=== PATIENT | female | born 1975 | race Caucasian/White ===

== ENCOUNTER 2021-03-13 14:59 | Outpatient (RCR) | payer OTHER, SELFPAY ==
[2021-03-13 15:10] VITALS: BP_SYST 110
--- NOTE | 2021-03-13 16:10 | PTOPEVAL ---
PHYSICAL THERAPY EVALUATION AND PLAN OF CARE 03-13-21 Thank you for referring Puja Mayfield to [facility] for the diagnosis of L shoulder pain. Puja is scheduled to be seen for therapy? 2 x/week for 3 weeks. Please review, sign, date and return this plan of care CONNIE. I agree with and certify that the following plan of care is medically necessary. Referring Physician Date Attending Provider: Adelso Dudley DO PT Outpatient Evaluation Document 03/13/21 15:10 EMA (Rec: 03/13/21 16:10 EMA [id number]) Past Medical History Source of Past Medical History Patient Neurological History Hx Neurological Disorders No Significant History Cardiovascular History Hx Cardiac Disorders No Significant History Respiratory History Hx Respiratory Disorders No Significant History Gastrointestinal History Hx Gastrointestinal Disorders No Significant History Genitourinary History Hx Genitourinary Disorders No Significant History Musculoskeletal History Hx Orthopedic Surgery Yes: L humeral fx-ORIF 2015; hardware removed 2016; Hx Other Musculoskeletal Disorders Yes: L all MT fracture; L pelvic fracture, L hip pain;T- L fractures,rib fx Endocrine History Hx Endocrine Disorders No Significant History HEENT History Hx HEENT Disorders No Significant History Evaluation Information Problem Diagnosis L shoulder pain Onset Jun 2020 Subjective Information chronic L shoulder pain, since Query Text:As Reported By Patient/ shoulder surgery in 2017; Family released from surgeon's care and returned to work; gradual increase in pain; at this time, is not doing any shoulder exercises, but a few stretches occasionally; does not have any room to do any exercises- living in a small space. 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
--- NOTE | 2021-03-19 15:21 | PCPTNOTE ---
Patient called & cancelled scheduled appointment this date due to seeing MD today due to increase pain on left side of body will see if she should continue with therapy.
--- NOTE | 2021-03-21 16:08 | PCPTNOTE ---
Patient did not show to appointment this date. Called and spoke with patient about appointment. Patient reports she is in so much pain in the left side of her body that she is going to see the MD next week. Patient states she wants to wait to come to therapy until she sees what the doctor instructed her to do.
--- NOTE | 2021-04-23 11:30 | PCPTNOTE ---
PHYSICAL THERAPY DISCHARGE 04-23-21 Attending Provider: Adelso Dudley DO Patient:Puja Mayfield Date of :1975 Ms. Mayfield has not returned for any further treatments since the initial evaluation on 03/13/2021, therefore she will be discharged at this time. The goals were not assessed. Thank you for referring Puja to [facility]. Please review, sign, date and return this discharge summary CONNIE. I have been updated about the patient's current status and I agree with discharge from the above service at this time. Referring Physician Date
== END 2021-04-24 09:07 | disposition home or self-care (01) ==
LOC: ANHPT 14:59
PROVIDERS: PCP Family Medicine; Visit Provider Family Medicine
DX: M25.512 Pain in left shoulder (principal); M77.42 Metatarsalgia, left foot; S99.922D Unspecified injury of left foot, subsequent encounter
CPT/HCPCS: 97161

== ENCOUNTER 2021-03-25 15:59 | Outpatient (CLI) | payer OTHER, SELFPAY ==
--- NOTE | ~2021-03-25 | XR_ITS ---
XR shoulder LT min 2V DATE: 03/25/2021 16:18 INDICATION: Left shoulder pain TECHNIQUE: 4 views COMPARISON: None FINDINGS: Old drill holes are noted in the proximal left humerus. No recent fracture or dislocation, periosteal reaction or bone destruction. No abnormal soft tissue c alcification. IMPRESSION: No acute finding Drill holes of proximal left humerus probably related to removal of prior orthopedic hardware Reviewed, dictated and finalized at location A. IMPRESSION: No acute finding Drill holes of proximal left humerus probably related to removal of prior ortho pedic hardware
--- NOTE | ~2021-03-25 | XR_ITS ---
XR lumbar spine 2-3V DATE: 03/25/2021 16:18 INDICATION: Chronic low back pain TECHNIQUE: AP, lateral, coned lateral lumbosacral views COMPARISON: None FINDINGS: No fracture or bone destruction or spondylolisthesis. The included lower thoracic and lumba r pedicles are intact. Lumbar and upper sacral interspaces are well preserved. Normal alignment at the sacroiliac joints. IMPRESSION: Negative Reviewed, dictated and finalized at location A. IMPRESSION: Negative
== END 2021-03-25 16:00 | disposition home or self-care (01) ==
LOC: ANHBWCIMG 16:00
PROVIDERS: PCP Family Medicine; Visit Provider Family Medicine
DX: M54.5 Low back pain (principal); M25.512 Pain in left shoulder
CPT/HCPCS: 72100; 73030

== ENCOUNTER 2021-04-28 16:06 | Outpatient (CLI) | payer OTHER, SELFPAY ==
--- NOTE | ~2021-04-28 | MR_ITS ---
EXAMINATION: MR shoulder LT wo/w con DATE: 04/28/2021 18:03 INDICATION: Left shoulder pain TECHNIQUE: Magnetic resonance imaging (MRI) of the left shoulder was performed without intravenous co ntrast. Sequences included axial PD-weighted FS FSE,, coronal oblique PD-weighted FS FSE, coronal obl ique T2-weighted FS FSE, sagittal PD-weighted FS FSE, and sagittal T1-weighted SE. Postcontrast axial , sagittal and coronal T1-weighted FS FSE were also obtained. COMPARISON: Left shoulder radiographs dated 03/25/2021 FINDINGS: Coracoacromial arch: The acromion undersurface is curved in morphology (type II). The coracoacromial ligament is normal. A cromioclavicular joint is normal. Rotator cuff: Mild supraspinatus and subscapularis tendinopathy without discrete tear. The infraspinatus and teres minor tendons are normal. Normal rotator cuff muscle bulk and signal. Biceps tendon, glenoid labrum and glenohumeral cartilage: Long head of the biceps tendon is normal. Small tear at the 10:00-11:00 position of the posterior sup erior glenoid labrum. Glenoid cartilage is normal. Small region of shallow chondral ulceration along the superomedial aspect of the humeral head. Fluid: Physiologic amount of fluid in the glenohumeral joint and biceps tendon sheath. No loose osteochondra l bodies. No abnormal increased fluid signal in the subacromial/subdeltoid bursa to suggest bursitis. Bones: There are multiple old screw tracks along the lateral aspect of the proximal right humerus with an ob lique scar of an old healed fracture to surgical neck. Marrow signal is otherwise normal. No acute fr acture or pathologic marrow replacing process. IMPRESSION: 1. Mild supraspinatus and subscapularis tendinopathy without discrete tear. 2. Minimal glenohumeral osteoarthritis with small tear of the posterior superior glenoid labrum. Reviewed, dictated and finalized at location A. IMPRESSION: 1. Mild supraspinatus and subscapularis tendinopathy without discrete tear. 2. Minimal glenohumeral osteoarthritis with small tear of the posterior superio r glenoid labrum.
--- NOTE | ~2021-04-28 | MR_ITS ---
EXAMINATION: MR foot LT wo con DATE: 04/28/2021 18:02 INDICATION: Left foot pain TECHNIQUE: Magnetic resonance imaging (MRI) of the left fore/mid foot was performed without intraveno us contrast. Sequences included sagittal T1-weighted FSE, sagittal fluid sensitive FSE STIR, coronal PD-weighted FS FSE, coronal T1-weighted FSE, axial PD-weighted FS FSE, and axial PD-weighted FSE. COMPARISON: Left foot radiographs dated 01/15/2021 FINDINGS: 15 degrees valgus angulation at the first metatarsophalangeal joint and mild lateral subluxation of t he first metatarsal sesamoids. Bone alignment is otherwise normal. No fractures. Mild to moderate ost eoarthritis at the first metatarsophalangeal joint with nonuniform joint space narrowing, mild subart icular edema at the head of the first metatarsal and small marginal osteophytes at the lateral margin of the base of the first proximal phalanx and head of the first metatarsal. Otherwise normal marrow signal with no other reactive edema or pathologic marrow replacing process. Remainder of the joint sp aces are normal. No erosions to suggest an inflammatory arthritis. Likely reactive small joint effusi on at the first metatarsophalangeal joint. No other joint effusions, tenosynovitis, bursitis or other abnormal fluid collections. Lisfranc ligament complex is normal as are the collateral ligament compl ex at the metatarsophalangeal joints and interphalangeal joints. Visualized portions of the flexor an d extensor tendons are normal as is the intrinsic musculature of the foot. IMPRESSION: 1. Mild hallux valgus with mild to moderate osteoarthritis at the first metatarsophalangeal joint. Reviewed, dictated and finalized at location A. IMPRESSION: 1. Mild hallux valgus with mild to moderate osteoarthritis at the first metatar sophalangeal joint.
[2021-04-28 16:58] LABS: Estimated Glomerular Filt Rate > 60
== END 2021-04-28 16:07 | disposition home or self-care (01) ==
LOC: ANHIMG 16:14
PROVIDERS: PCP Family Medicine; Visit Provider Family Medicine
DX: M19.012 Primary osteoarthritis, left shoulder (principal); M20.12 Hallux valgus (acquired), left foot; M19.072 Primary osteoarthritis, left ankle and foot
CPT/HCPCS: 73223; 73718; A9577

== ENCOUNTER 2021-05-30 16:29 | Outpatient (CLI) | payer OTHER, SELFPAY ==
[2021-05-30 17:44] LABS: Basophils Percent Auto 0.3 % (0.2-1.2); Eosinophils Absolute Auto 0.1 K/mm3 (0-0.3); Eosinophils Percent Auto 1.5 % (0-4.4); Hematocrit 28.7 % (37.0-47.0); Hemoglobin 9.7 g/dL (12.0-15.0); Immature Granulocyte Absolute 0.02 K/mm3 (0.00-0.031); Immature Granulocyte Percent A 0.3 % (0-0.5); Lymphocytes Absolute Auto 1.31 K/mm3 (0.9-3.2); Lymphocytes Percent Auto 22.3 % (18.3-44.2); Mean Corpuscular HGB Conc 33.8 g/dl (32-36); Mean Corpuscular Hemoglobin 30.9 pg (26-34); Mean Corpuscular Volume 91.4 fl (80-100); Mean Platelet Volume 9.2 fl (7.4-10.4); Monocytes Absolute Auto 0.5 K/mm3 (0.1-0.6); Monocytes Percent Auto 7.7 % (2.6-8.5); Neutrophils Percent Auto 67.9 % (45.5-73.1); Platelet Count Result 197 k/mm3 (150-375); Red Blood Count 3.14 M/mm3 (4.2-5.4); Red Cell Distribution Width 13.4 % (11.5-14.5); White Blood Count 5.9 K/mm3 (4.5-10.0)
[2021-05-30 17:55] LABS: Alanine Aminotransferase 85 U/L (4-35); Albumin Level 3.9 g/dL (3.5-5.1); Alkaline Phosphatase 53 U/L (38-126); Anion Gap 8 mmol/L (8-16); Aspartate Amino Transferase 52 U/L (14-36); Bilirubin,Total 0.5 mg/dL (0.2-1.3); Blood Urea Nitrogen 11 mg/dL (7-17); Calcium 8.4 mg/dL (8.4-10.2); Carbon Dioxide 24 mmol/L (22-30); Chloride 93 mmol/L (98-107); Cholesterol 139 mg/dL (0-200); Estimated Glomerular Filt Rate > 60; Glucose 93 mg/dL (65-110); HDL Direct 80 mg/dL; Potassium 4.1 mmol/L (3.4-5.0); Sodium 125 mmol/L (137-145); Triglycerides 93 mg/dL (<150)
[2021-05-30 18:09] LABS: LDL Cholesterol Direct 54 mg/dL
[2021-06-05 10:55] LABS: Amphetamines NEGATIVE
[2021-06-05 10:56] LABS: Cocaine Metabolite NEGATIVE; Marijuana Metabolite NEGATIVE; Opiates NEGATIVE
== END 2021-05-30 16:30 | disposition home or self-care (01) ==
PROVIDERS: PCP Family Medicine; Visit Provider Family Medicine
DX: G57.10 Meralgia paresthetica, unspecified lower limb (principal); M25.512 Pain in left shoulder
CPT/HCPCS: 36415; 80053; 80061; 80299; 85025

== ENCOUNTER 2021-06-02 12:15 | Outpatient (CLI) | payer OTHER, SELFPAY ==
[2021-06-02 18:37] LABS: Hematocrit 33.8 % (37.0-47.0); Hemoglobin 11.6 g/dL (12.0-15.0); Mean Corpuscular HGB Conc 34.3 g/dl (32-36); Mean Corpuscular Hemoglobin 30.7 pg (26-34); Mean Corpuscular Volume 89.4 fl (80-100); Mean Platelet Volume 9.3 fl (7.4-10.4); Platelet Count Result 321 k/mm3 (150-375); Red Blood Count 3.78 M/mm3 (4.2-5.4); Red Cell Distribution Width 13.5 % (11.5-14.5); White Blood Count 6.9 K/mm3 (4.5-10.0)
[2021-06-02 18:53] LABS: Sodium Urine Random 16 meq/L
[2021-06-02 19:36] LABS: Hepatitis B Surface Antigen Negative (Negative)
[2021-06-02 19:42] LABS: HAV RESULT Negative (Negative); Hepatitis B Core IgM Result Negative (Negative)
[2021-06-02 19:49] LABS: Iron 35 ug/dL (37-170)
[2021-06-02 19:51] LABS: Anion Gap 12 mmol/L (8-16); Blood Urea Nitrogen 9 mg/dL (7-17); Calcium 9.6 mg/dL (8.4-10.2); Carbon Dioxide 20 mmol/L (22-30); Chloride 103 mmol/L (98-107); Estimated Glomerular Filt Rate > 60; Glucose 75 mg/dL (65-110); Potassium 4.6 mmol/L (3.4-5.0); Sodium 135 mmol/L (137-145)
[2021-06-02 19:54] LABS: Hepatitis C Virus Antibody Negative (Negative)
[2021-06-02 20:01] LABS: Percent Iron Saturation 8 % (20-50)
[2021-06-02 20:56] LABS: Folic Acid 12.9 ng/mL (2.76->20)
[2021-06-05 15:25] LABS: Osmolality, Urine 81 mOsm/kg (50-1200)
== END 2021-06-02 12:16 | disposition home or self-care (01) ==
LOC: ANHBWCLAB 12:17
PROVIDERS: PCP Family Medicine; Visit Provider Family Medicine
DX: D64.9 Anemia, unspecified (principal); E87.1 Hypo-osmolality and hyponatremia; R74.8 Abnormal levels of other serum enzymes
CPT/HCPCS: 36415; 80048; 80074; 82607; 82746; 83540; 83550; 83935; 84300; 84443; 85027

== ENCOUNTER 2021-10-29 15:44 | Outpatient (CLI) | payer OTHER, SELFPAY ==
[2021-10-29 16:20] LABS: Hematocrit 33.2 % (37.0-47.0); Hemoglobin 10.6 g/dL (12.0-15.0); Mean Corpuscular HGB Conc 31.9 g/dl (32-36); Mean Corpuscular Hemoglobin 30.5 pg (26-34); Mean Corpuscular Volume 95.7 fl (80-100); Mean Platelet Volume 9.2 fl (7.4-10.4); Platelet Count Result 293 k/mm3 (150-375); Red Blood Count 3.47 M/mm3 (4.2-5.4); White Blood Count 6.5 K/mm3 (4.5-10.0)
[2021-10-29 16:35] LABS: Anion Gap 4 mmol/L (8-16); Blood Urea Nitrogen 13 mg/dL (7-17); Calcium 8.1 mg/dL (8.4-10.2); Carbon Dioxide 28 mmol/L (22-30); Chloride 103 mmol/L (98-107); Estimated Glomerular Filt Rate > 60; Glucose 82 mg/dL (65-110); Potassium 4.1 mmol/L (3.4-5.0); Sodium 135 mmol/L (137-145)
[2021-11-02 05:43] LABS: Alphahydroxymidazolam NEGATIVE ng/mL (<50); Alphahydroxytriazolam NEGATIVE ng/mL (<50); Amphetamines NEGATIVE ng/mL (<500); Barbiturates NEGATIVE ng/mL (<300); Benzodiazepines POSITIVE ng/mL (<100); Cocaine Metabolite NEGATIVE ng/mL (<100); Hydroxyethylflurazepam NEGATIVE ng/mL (<50); Lorazepam NEGATIVE ng/mL (<50); Marijuana Metabolite NEGATIVE ng/mL (<20); Methadone Metabolite NEGATIVE ng/mL (<100); Opiates NEGATIVE ng/mL (<100); Oxidant NEGATIVE mcg/mL (<200); Specific Gravity 1.005 (>=1.003); Temazepam NEGATIVE ng/mL (<50); pH 6.9 (4.5-9.0)
== END 2021-10-29 15:45 | disposition home or self-care (01) ==
LOC: ANHLAB 15:46
PROVIDERS: PCP Family Medicine; Visit Provider Family Medicine
DX: E87.1 Hypo-osmolality and hyponatremia (principal); D64.9 Anemia, unspecified; G89.29 Other chronic pain
CPT/HCPCS: 36415; 80048; 80299; 85027

== ENCOUNTER 2022-06-22 14:51 | Outpatient (CLI) | payer OTHER, SELFPAY ==
[2022-06-22 15:32] LABS: Basophils Absolute Auto 0.1 K/mm3 (0.0-0.1); Basophils Percent Auto 1.1 % (0.2-1.2); Eosinophils Absolute Auto 0.2 K/mm3 (0-0.3); Hematocrit 35.1 % (37.0-47.0); Hemoglobin 12.1 g/dL (12.0-15.0); Immature Granulocyte Absolute 0.01 K/mm3 (0.00-0.031); Immature Granulocyte Percent A 0.2 % (0-0.5); Lymphocytes Absolute Auto 2.36 K/mm3 (0.9-3.2); Lymphocytes Percent Auto 42.1 % (18.3-44.2); Mean Corpuscular HGB Conc 34.5 g/dl (32-36); Mean Corpuscular Hemoglobin 31.1 pg (26-34); Mean Corpuscular Volume 90.2 fl (80-100); Monocytes Absolute Auto 0.5 K/mm3 (0.1-0.6); Monocytes Percent Auto 8.4 % (2.6-8.5); Neutrophils Absolute Auto 2.5 K/mm3 (1.3-6.7); Neutrophils Percent Auto 45.2 % (45.5-73.1); Platelet Count Result 296 k/mm3 (150-375); Red Blood Count 3.89 M/mm3 (4.2-5.4); Red Cell Distribution Width 14.4 % (11.5-14.5); White Blood Count 5.6 K/mm3 (4.5-10.0)
[2022-06-22 15:37] LABS: Alanine Aminotransferase 27 U/L (6-35); Albumin Level 4.9 g/dL (3.5-5.1); Alkaline Phosphatase 43 U/L (38-126); Anion Gap 11 mmol/L (8-16); Aspartate Amino Transferase 32 U/L (14-36); Bilirubin,Total 0.7 mg/dL (0.2-1.3); Blood Urea Nitrogen 6 mg/dL (7-17); Calcium 8.8 mg/dL (8.4-10.2); Carbon Dioxide 27 mmol/L (22-30); Chloride 99 mmol/L (98-107); Estimated Glomerular Filt Rate > 60; Glucose 81 mg/dL (65-110); Potassium 4.1 mmol/L (3.4-5.0); Sodium 137 mmol/L (137-145)
[2022-06-22 15:48] LABS: Iron 88 ug/dL (37-170)
[2022-06-22 16:00] LABS: Percent Iron Saturation 23 % (20-50)
== END 2022-06-22 14:52 | disposition home or self-care (01) ==
LOC: ANHLAB 14:54
PROVIDERS: PCP Family Medicine; Visit Provider Family Medicine
DX: D64.9 Anemia, unspecified (principal); R74.8 Abnormal levels of other serum enzymes; E83.51 Hypocalcemia
CPT/HCPCS: 36415; 80048; 80076; 82607; 82728; 83540; 83550; 85025

== ENCOUNTER → 2022-11-02 15:07 | Outpatient (CLI) | payer BC, SELFPAY ==
--- NOTE | ~2022-11-02 | MR_ITS ---
EXAMINATION: MR shoulder LT wo con DATE: 11/02/2022 15:46 INDICATION: Left shoulder pain. TECHNIQUE: Magnetic resonance imaging (MRI) of the left shoulder was performed without intravenous co ntrast. Sequences included axial PD-weighted FS FSE, coronal oblique PD-weighted FS FSE and T2-weight ed FS FSE, and sagittal oblique T2-weighted FS FSE and T1-weighted FSE. COMPARISON: Left shoulder MRI 04/28/2021 FINDINGS: Coracoacromial arch: The acromion undersurface is flat in morphology (type I). Acromioclavicular joint is normal. No subac romial/subdeltoid bursitis. Rotator cuff: Supraspinatus, infraspinatus, and teres minor tendons are normal. Subscapularis tendon is normal. No tear. The rotator cuff muscle bellies are normal. Biceps tendon and glenoid labrum: Biceps tendon is in bicipital groove. Biceps tendon is normal. There is a tear of glenoid labrum from 11:00 to 12:00 (SLAP tear). Fluid: There is no glenohumeral joint effusion. Bones/cartilage: The glenoid cartilage is normal. Humeral head cartilage is normal. There are foci of susceptibility a rtifact in proximal humerus from prior surgery. IMPRESSION: 1. SLAP tear. Reviewed, dictated and finalized at location A. IMPRESSION: 1. SLAP tear.
== END ==
PROVIDERS: PCP Family Medicine; Visit Provider Family Medicine
DX: S43.432A Superior glenoid labrum lesion of left shoulder, initial encounter (principal); X58.XXXA Exposure to other specified factors, initial encounter
CPT/HCPCS: 73221

== ENCOUNTER 2024-09-29 17:53 | Inpatient (IN) | payer BC, SELFPAY ==
[2024-09-29] VITALS (11 sets, daily range): BP systolic 90–138; BP diastolic 38–101; PULSE 98–108; RESP 11–18; TEMP 37.1; O2SAT 98–100
--- NOTE | ~2024-09-29 | XR_ITS ---
XR chest 1V portable Ordering provider: Kirit Padilla MD History: 48 years Female with . Seizure . Comparison: None. FINDINGS: MEDIASTINUM: The cardiac silhouette is not enlarged. LUNGS: No infiltrates, effusions or pneumothorax. OTHER: No free air under the diaphragm. IMPRESSION: No acute cardiopulmonary pathology. Reviewed, dictated and finalized at location A. [employer]
--- NOTE | ~2024-09-29 | CT_ITS ---
CT brain wo con Ordering provider: Kirit Padilla MD History: 48 years Female with . Seizure . Comparison: None. Technique: CT of the head without contrast. Radiation reduction technique utilized.The dose-length pr oduct was 680 1V mGy-cm. FINDINGS: BRAIN PARENCHYMA AND CSF SPACES: No midline shift, mass effect or hemorrhage. The brain parenchyma a nd CSF spaces are otherwise normal. VISUALIZED PARANASAL SINUSES: Well aerated. MASTOIDS: Well aerated. BONES: The bones appear intact. SOFT TISSUES: Visualized nasopharynx is normal. Superficial soft tissues are normal. IMPRESSION: No acute intracranial findings. Reviewed, dictated and finalized at location A. B TECH
--- NOTE | ~2024-09-29 | US_ITS ---
Limited ABDOMINAL ULTRASOUND (Doppler ultrasound interrogation techniques used as needed for this exa m.) Ordering provider: Gerardo Arceo MD History: . Hyperbilirubinemia and elevated LFTs . Comparison: None. FINDINGS: PANCREAS: Normal echotexture and size of visualized portions. PORTAL VEIN: Hepatopedal flow demonstrated. LIVER: Normal size and increased echotexture. No focal hepatic lesions or perihepatic fluid collectio ns are identified. BILIARY DUCTS: No intra or extrahepatic biliary dilation. Common bile duct measures 2.9 mm in diamete r which is normal for patient's age. GALLBLADDER: Normal. Folds are noted. No stones, sludge, gallbladder wall thickening or pericholecyst ic fluid. Negative sonographic Troy's sign. Wall thickness is 2.4 mm. FREE FLUID: Trace seen in the right upper quadrant. IMPRESSION: Mild fat infiltration of the liver. Trace of fluid in the right upper quadrant. Otherwise, normal lea ited abdominal ultrasound. Reviewed, dictated and finalized at location A. HETICIAN IMPRESSION: Mild fat infiltration of the liver. Trace of fluid in the right upper quadrant. Otherwise, normal limited abdominal ultrasound.
--- NOTE | 2024-09-29 18:00 | ECG_ITS ---
Test Date: 2024-09-29 18:37:29 Measurements Intervals Noel Rate: 96 P: 56 LA: 148 QRS: 53 QRSD: 85 T: 63 QT: 393 QTc: 499 Interpretive Statements SINUS RHYTHM BASELINE ARTIFACT- II, III, AVR, AVL, AVF, V4-V6 NORMAL ECG No previous ECG available for comparison Electronically Signed On 09-29-2024 19:15:53 [employer] by David Morelos D.O.
--- OUTSIDE RECORDS SUMMARY | 2024-09-29 18:04 | XMS_ITS | Encounter Summary ---
Author Organization [facility] Address [address] [place] [address] Care Team Providers Care Business Intelligence Manager Name Role Phone DangeloMiriam ferguson ZARA Primary Care Provider [phone] Deyvi Schmidt MD Primary Care Provider + Guero Shaw MD Primary Care Provider [phone] Encounter Details Date Type Department Care Team (Late st Contact Info) Description 03/29/2020 Prep for Procedure [facility] [address] [place], [place] [id number] Ramy Valdez MD [address] [place] [address] Social History Tobacco Use Types Packs/Day Years Used Date Smoking Tobacco: Former Cigarettes Smokeless Tobacco: Never Comments:social smoking, not sure of quit date Alcohol Use Standard Drinks/Week Comments Not Currently 0 (1 standard drink = 0.6 oz pur e alcohol) PHQ-2 Answer Date Recorded PHQ-2 Score - If the patient scores above 3, please move on to questions 3-9 1 02/22/2020 Comments No Sex and Gender Information Value Date Recorded Sex Assigned at Female 09/01/2024 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 No / Unsure 03/29/2020 3:48 PM CDT documented as of this encounter Plan of Treatment Upcoming Encounters Date Type Department Care Team (Late st Contact Info) Description 02/26/2025 4:20 PM CDT Office Visit [facility] Family [facility] Internal Medicine [facility] [address] [place] [address] [place] [address] [facility] [address] [place] [address] documented as of this encounter Results * PRE-SURGICAL/PRE-PROCEDURE CORONAVIRUS (COVID 19) (04/01/2020 3:00 PM CDT) CORONAVIRUS SARS COV 2 PCR (RESP) NOT DETECTED NOT DETECTED 04/02/2020 6:25 PM CDT [facility] Comment: A Not Detected (negative) test result for this test means that SARS- CoV-2 RNA was not present in the specimen above the limit of detection. A negative result does not rule out the possibility of COVID-19 and should not be used as the sole basis for treatment or patient management decisions. If COVID-19 is still suspected, based on exposure history together with other clinical findings, re-testing should be considered in consultation with public health authorities. Laboratory test results should always be considered in the context of clinical observations and epidemiological data in making a final diagnosis and patient management decisions. Please review the Fact Sheets and FDA authorized labeling available for health care providers and patients using the following websites: https://[email or web address]/home/Covid-19/[email or web address]/fact-sheet2 [email or web address]://[email or web address]/home/Covid-19/Patients/NAAT/ fact-sheet2 This test has been authorized by the FDA under an Emergency Use Authorization (EUA) for use by authorized laboratories. Due to the current public health emergency, [facility] is receiving a high volume of samples from a wide variety of swabs and media for COVID-19 testing. In order to serve patients during this public health crisis, samples from appropriate clinical sources are being tested. Negative test results derived from specimens received in non-commercially manufactured viral collection and transport media, or in media and sample collection kits not yet authorized by FDA for COVID-19 testing should be cautiously evaluated and the patient potentially subjected to extra precautions such as additional clinical monitoring, including collection of an additional specimen. Methodology: Nucleic Acid Amplification Test (NAAT) includes PCR or TMA Additional information about COVID-19 can be found at the [facility] website: www.[email or web address].Skin [employer]/Covid19. Test performed at [facility] [address] [place] [address] Director: SARBJIT SHERIDAN DO,MPH NASOPHARYNGEAL SWAB / Unknown 04/01/2020 3:00 PM CDT us Ramy Valdez MD MICROBIOLOGY - GENERAL ORDERABL ES Final Result [facility] [id number] [place] [address] documented in this encounter Visit Diagnoses Diagnosis Preop examination- Primary Preoperative examination, unspecified documented in this encounter Additional Health Concerns Infection Onset Date Last Indicated Resolved Time COVID-19 Rule Out 04/01/2020 04/01/2020 04/02/2020 6:25 PM CDT Assessment Noted Time PHQ-9 Depression Total Score: 3 02/22/20 20 3:33 PM CDT documented as of this encounter Care Teams Business Intelligence Manager Relationship Specialty Start Date End Date Miriam Mims APNP [address] [place] [address] PCP - General NURSE PRACTITIONER 02/20/20 01/30/24 Deyvi Schmidt MD [address] [address] PCP - General FAMILY PRACTICE 01/31/24 06/23/24 [place] [id number] [address] PCP - General INTERNAL MEDICINE 07/20/24 documented as of this encounter
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
--- OUTSIDE RECORDS SUMMARY | 2024-09-29 18:04 | XMS_ITS | Encounter Summary ---
Author Organization [facility] Care Team Providers Care Ad Copy Writer Name Role Phone No, Physician Primary Care Provider [phone] Geoff Gary DPM Primary Care Provider Timothy Dixon DO Primary Care Provider [phone] Erasmo Kamara MD Primary Care Provider [phone] Deyvi Schmidt MD Primary Care Provider [phone] Encounter Details Date Type Department Care Team (Latest Contact Info) Description 03/18/2016 Orders Only [facility]INCONV Provider, MD [place] [address] [place] [id number] Social History Tobacco Use Types Packs/Day Years Used Date Smoking Tobacco: Never Assessed Comments Unknown Sex and Gender Information Value Date Recorded Sex Assigned at Not on file 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 us Historical Provider Final Res ult documented in this encounter Visit Diagnoses Not on filedocumented in this encounter Care Teams Ad Copy Writer Relationship Specialty Start Date End Date No, Physician PCP - General 02/28/19 03/05/19 Geoff Gary DPM [address] [facility] [address] [place] [address] PCP - General [employer] Paralegal 03/06/19 01/11/20 Timothy Dixon DO [address] [place] [address] PCP - General Family Medicine 01/12/20 08/14/22 Erasmo Kamara MD [address] [id number] PCP - General Family Practice 08/15/22 05/23/24 Deyvi Schmidt MD [address] [facility] [address] [place] [address] PCP - General Family Practice 05/24/24 documented as of this encounter
--- OUTSIDE RECORDS SUMMARY | 2024-09-29 18:04 | XMS_ITS | Continuity of Care Document ---
Author Organization [facility] Address [address] [address] Social History Not on File Plan of Treatment Not on file
--- OUTSIDE RECORDS SUMMARY | 2024-09-29 18:04 | XMS_ITS | Referral Summary ---
Author Organization [facility] Address [address] [place] [address] Care Team Providers Care Family Services Manager Name Role Phone Curry Moyer MD Unavailable [phone] Source Comments [facility],non-owned Affiliates and Associated Physician Practices is amultiple site organization consisting of ambulatory clinics and hospital sitesin [place], [place], [place] and [place]. This disclosure is being madepursuant to the Care Everywhere program and may not contain all information available regarding this patient. Last updated 18.[facility] Allergies Active Allergy Reactions Criticality Noted Date Comments Haloperidol Seizures High 09/14/2019 Medications * Be aware that medications may not be up to date on this document. Alwaysverify current medications with the patient. Medication Sig Dispensed Refills Start Date End Date Status acetaminophen (TYLENOL) 250 MG TABS Take 250 mg by mouth 2 times daily Active buPROPion XL 24hr (WELLBUTRIN-XL) 150 MG tabletIndications:CARLENE (generalized anxiety disorder) Take 1 tablet by mouth once daily 1 tablet 02/13/2020 Active busPIRone (BUSPAR) 10 MG tabletIndications:Anxi ety Disorder Take 1 tablet by mouth 2 times daily Reasons: Anxiety Disorder 1 tablet 02/13/2020 Active Cholecalciferol (VITAMIN D) 50 MCG (1999) capsuleIndications:Tiny mendoza osteoarthritis of foot, unspecified laterality Take 1 capsule by mouth once daily 1 capsule 02/13/2020 Active eszopiclone (LUNESTA) 1 MG tabletIndications:Inso mnia Take 1 tablet by mouth at bedtime Reasons: Trouble Sleeping 1 tablet 02/13/2020 Active LORazepam (ATIVAN) 0.5 MG tabletIndications:CARLENE (generalized anxiety disorder) Take 1 tablet by mouth every 12 hours as needed FOR ANXIETY 1 tablet 02/13/2020 Active Vit-Fe Fumarate-FA ( VITAMIN PLUS LOW IRON) 27-1 MG TABS Take 1 tablet by mouth once daily 1 tablet 02/13/2020 Active naproxen (Naprosyn) 500 MG tablet Take 1 (one) tablet by mouth 2 times daily 20 tablet 02/10/2023 Active Active Problems Problem Noted Date Diagnosed Date Narcotic drug use 01/22/2020 02/10/2023 Overview (02/10/2023): Last Assessment & Plan: I informed her a 30 day notice. After this I recommend that she find another primary provider. I will help with medical concerns but will not be rx'ing any more narcotics or controlled substances. This is because of a neg drug screen when she told me she was taking [place]. Last Assessment & Plan: I informed her a 30 day notice. After this I recommend that she find another primary provider. I will help with medical concerns but will not be rx'ing any more narcotics or controlled substances. This is because of a neg drug screen when she told me she was taking [place]. CARLENE (generalized anxiety disorder) 06/20/2019 Primary osteoarthritis of foot 06/20/2019 Alcohol use disorder, severe, dependence 018 02/10/2023 Overview (02/10/2023): Last Assessment & Plan: F/u with psych and social support rescources. Encouraged to go to AA. Benzodiazepine dependence 03/04/20182022 Overview (02/10/2023): Last Assessment & Plan: [place] has been getting monthly benzo rx's from 2 separate providers- clonezepam 1mg #[address] Molina and lorezapam .5mg #[address] Oneida more. She did not initially tell me this whan I asked about her mental health history. Social History Tobacco Use Types Packs/Day Years Used Date Smoking Tobacco: Never Smokeless Tobacco: Never Tobacco Cessation:Counseling Given: Yes Alcohol Use Standard Drinks/Week Comments No 0 (1 standard drink = 0.6 oz pur e alcohol) Sex and Gender Information Value Date Recorded Sex Assigned at Not on file Gender Identity Not on file Sexual Orientation Not on file Last Filed Vital Signs Vital Sign Reading Time Taken Comments Blood Pressure 121/84 02/10/2023 7:47 PM CDT Pulse 101 02/10/2023 7:47 PM CDT Temperature 37 C (98.6 F) 02/10/2023 3:22 PM CDT Respiratory Rate 22 02/10/2023 7:47 PM CDT Oxygen Saturation 96% 02/10/2023 3:22 PM CDT Inhaled Oxygen Concentration - - Weight 42.2 kg (93 lb) 02/10/2023 3:22 PM CDT Height 157.5 cm (5' 2 ) 02/10/2023 3:22 PM CDT Body Mass Index 17.01 02/10/2023 3:22 PM CDT Plan of Treatment Not on file Care Teams Family Services Manager Relationship Specialty Start Date End Date Curry Moyer MD [address] [address] Obstetrics and Gynecology 06/20/19
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
--- OUTSIDE RECORDS SUMMARY | 2024-09-29 18:04 | XMS_ITS | Clinical Summary ---
Author Organization [facility] Address [address] [place] [address] Care Team Providers Care Hand Embroiderer Name Role Phone Curry Moyer MD Unavailable [phone] Source Comments [facility],non-owned Affiliates and Associated Physician Practices is amultiple site organization consisting of ambulatory clinics and hospital sitesin [place], [place], [place] and [place]. This disclosure is being madepursuant to the Care Everywhere program and may not contain all information available regarding this patient. Last updated 18.[facility] [employer] Allergies Active Allergy Reactions Criticality Noted Date [...] when she told me she was taking [place]. Last Assessment & Plan: I informed her a 30 day notice. After this I recommend that she find another primary provider. I will help with medical concerns but will not be rx'ing any more narcotics or controlled substances. This is because of a neg drug screen when she told me she was taking [place]. CARLENE (generalized anxiety disorder) 06/20/2019 Primary osteoarthritis [...] I asked about her mental health history. Family History Medical History Relation Name Comments Cancer Father Diabetes - Type 2 Mother Hypertension Mother Relation Name Status Comments Father Mother Alive Social History [...] 02/10/2023 3:22 PM CDT Plan of Treatment Health Maintenance Due Date Last Done Comments COLOGUARD (AGES 45-75) - COL ON CA SCREENING 1976 COLON MONITORING 1976 COLONOSCOPY - COLON CA SCREENING 1976 CT COLONOGRAPHY - COLON CA SCREENING 1976 Colorectal Cancer Screening 1976 FIT - COLON CA SCREENING 1976 FLEX SIG - COLON CA SCREENING 1976 LIPID TESTING 1976 MAMMOGRAM 1976 PAP SMEAR 1976 HIV SCREENING 12/17/1991 HEPATITIS C SCREENING 12/12/1994 DTAP/TDAP/TD VACCINES (1 - Tdap) 12/17/1995 HEPATITIS B VACCINE (1 of 3 - 19+ 3-dose series) 12/17/1995 COVID-19 VACCINE ( - 2023-2 5 season) 2024 INFLUENZA VACCINE (#1) 2024 DEPRESSION SCREENING 08/02/2024 ZOSTER VACCINE (1 of 2) 2026 HIB VACCINE Aged Out No longer eligi ble based on patient's age to complete this topic HPV VACCINE Aged Out No longer eligi ble based on patient's age to complete this topic MENINGOCOCCAL (Group B) VACCINE Aged Out No longer eligible based on patient's age to complete this topic MENINGOCOCCAL VACCINE Aged Out No juanita teresa eligible based on patient's age to complete this topic PNEUMOCOCCAL VACCINE Aged Out No long er eligible based on patient's age to complete this topic Care Teams Hand Embroiderer Relationship Specialty Start Date End Date Curry Moyer MD [address] [address] Obstetrics and Gynecology 06/20/19
[2024-09-29 18:31] LABS: BEDSIDEPREGUCG Negative (Negative)
[2024-09-29] MEDS: SODIUM CHLORIDE 0.9% IV 2,000 ML 999 ML IV CONT (18:31)
[2024-09-29] MEDS: levETIRAcetam 1500MG/NACL100ML 1,500 MG/100 ML BAG 400 MG IVPB (18:37)
[2024-09-29 18:50] LABS: Basophils Percent Auto 0.6 % (0.2-1.2); Eosinophils Percent Auto 0.1 % (0-4.4); Hematocrit 31.6 % (37.0-47.0); Hemoglobin 11.7 g/dL (12.0-15.0); Immature Granulocyte Absolute 0.06 K/mm3 (0.00-0.031); Immature Granulocyte Percent A 0.8 % (0-0.5); Lymphocytes Absolute Auto 1.46 K/mm3 (0.9-3.2); Lymphocytes Percent Auto 20.7 % (18.3-44.2); Mean Corpuscular Hemoglobin 31.4 pg (26-34); Mean Corpuscular Volume 84.7 fl (80-100); Mean Platelet Volume 9.6 fl (7.4-10.4); Monocytes Absolute Auto 0.7 K/mm3 (0.1-0.6); Monocytes Percent Auto 9.6 % (2.6-8.5); Neutrophils Absolute Auto 4.8 K/mm3 (1.3-6.7); Neutrophils Percent Auto 68.2 % (45.5-73.1); Platelet Count Result 188 k/mm3 (150-375); Red Blood Count 3.73 M/mm3 (4.2-5.4); Red Cell Distribution Width 12.1 % (11.5-14.5); White Blood Count 7.1 K/mm3 (4.5-10.0)
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
[2024-09-29 18:57] LABS: Add Urine Microscopic? YES; Appearance Urine Clear (Clear); Bacteria Urine None Seen /hpf; Bilirubin Urine Negative (Negative); Blood Urine Trace (Negative); Color Urine Yellow (Yellow); Glucose Urine UA Negative (Negative); Ketones Urine 2+ mg/dL (Negative); Leukocyte Esterase Ur Negative LEU/UL (Negative); Nitrate Urine Negative (Negative); Non Pathogenic Casts 0-2; Protein Urine Trace mg/dL (Negative); RBC Urine 0-2 /hpf (0-2); Specific Grav Ur 1.019 (1.001-1.035); Squamous Epithelial Cell Urine None Seen /hpf (Few); WBC Urine 0-5 /hpf (0-3)
[2024-09-29 19:01] LABS: Prothrombin Time 13.3 Seconds (11.1-14.7)
[2024-09-29 19:02] LABS: Partial Thromboplastin Time 25.3 Seconds (22.3-36.8)
[2024-09-29] MEDS: THIAMINE 500 MG/NS 100 ML 500 MG/100 ML BAG 200 MG IVPB (19:13)
--- NOTE | 2024-09-29 19:18 | PC.NURSE ---
Patient still complaining of dizziness
[2024-09-29 19:21] LABS: Ethanol 24 mg/dL (<10)
[2024-09-29 19:21] LABS: Acetaminophen < 10 ug/mL (10-30)
[2024-09-29 19:30] LABS: Lactic Acid Reflex 8.4 mmol/L (0.7-2.0)
[2024-09-29 19:31] LABS: Alanine Aminotransferase 48 U/L (6-35); Albumin Level 4.7 g/dL (3.5-5.1); Alkaline Phosphatase 58 U/L (38-126); Anion Gap 24 mmol/L (4-12); Aspartate Amino Transferase 69 U/L (14-36); Blood Urea Nitrogen 3 mg/dL (7-17); Calcium 8.3 mg/dL (8.4-10.2); Carbon Dioxide 16 mmol/L (22-30); Chloride 72 mmol/L (98-107); Creatine Kinase 131 U/L (30-135); Estimated CRCL calculation 99 ml/min; Estimated Glomerular Filt Rate > 60; Glucose 136 mg/dL (65-110); Lipase 89 U/L (23-300); Magnesium 1.5 mg/dL (1.6-2.3); NT Pro B Type Natriuretic Pept 76 pg/mL (19.9-100); Phosphorus 2.9 mg/dL (2.5-4.5); Potassium 2.5 mmol/L (3.4-5.0); Sodium 112 mmol/L (137-145)
[2024-09-29 19:33] LABS: Influenza A QL RT-PCR Negative (Negative); Influenza B QL RT-PCR Negative (Negative); RSV RNA, RT-PCR Negative (Negative); SARS-CoV-2 RNA PCR Negative (Negative)
[2024-09-29 19:38] LABS: Amphetamine Screen Urine Negative (Negative); Barbiturate Screen Urine Negative (Negative); Benzodiazepines Screen Urine Negative (Negative); Cannabinoid Screen Urine Negative (Negative); Cocaine Screen Urine Negative (Negative); Methadone Screen Urine Negative (Negative); Opiate Screen Urine Negative (Negative); Phencyclidine Screen Urine Negative (Negative)
[2024-09-29 19:44] LABS: Troponin I < 0.012 ng/mL (0.000-0.034)
--- NOTE | 2024-09-29 20:18 | PC.NURSE ---
Patient had large emesis all over floor-mostly clear with some brown streaks
[2024-09-29] MEDS: MAGNESIUM SULF 2 GM/WATER 50ML 2 GM/50 ML BAG IVPB (20:19)
[2024-09-29 20:22] LABS: Sodium 115 mmol/L (137-145)
[2024-09-29] MEDS: POTASSIUM CHLORIDE INJ 40 MEQ in SODIUM CHLORIDE 0.9% IV 500 ML 130 MEQ IVPB (20:23)
[2024-09-29] MEDS: ONDANSETRON INJ 4 MG/2 ML VIAL IV PUSH (20:37)
--- NOTE | 2024-09-29 21:01 | ECG_ITS ---
Test Date: 2024-09-29 21:07:31 Measurements Intervals Justin Rate: 105 P: 45 FL: 121 QRS: 32 QRSD: 84 T: 47 QT: 378 QTc: 501 Interpretive Statements SINUS TACHYCARDIA BASELINE ARTIFACT- I, II, III, AVR, AVL, AVF, V1 BORDERLINE ECG Compared to ECG 09/29/2024 18:37:29 HEART RATE HAS INCREASED Electronically Signed On 09-30-2024 06:51:27 BILLING ASSOCIATE by David Morelos D.O.
[2024-09-29 21:32] LABS: Troponin I < 0.012 ng/mL (0.000-0.034)
[2024-09-29 21:44] LABS: Creatinine Urine 83.3 mg/dL; Urea Random Urine 330 MG/DL
[2024-09-29 21:46] LABS: Reflex Lactic Acid Yes or No Add Lactic
[2024-09-29 21:48] LABS: Sodium Urine Random 52 meq/L
[2024-09-29] MEDS: SODIUM CHLORIDE 3% 150 ML 450 ML IV CONT (22:14)
[2024-09-29 22:23] LABS: Lactic Acid 0.7 mmol/L (0.7-2.0)
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
[2024-09-29] MEDS: ACETAMINOPHEN 500 MG TABLET 1000 MG PO (23:07)
[2024-09-29 23:10] LABS: Sodium 123 mmol/L (137-145)
[2024-09-30] VITALS (13 sets, daily range): BP systolic 95–127; BP diastolic 66–89; PULSE 73–96; RESP 16–17; TEMP 36.8–37.1; O2SAT 97–100; BMI 18.5
[2024-09-30] MEDS: chlordiazePOXIDE (*CRX) 25 MG CAPSULE PO ×4 (00:08→23:35)
[2024-09-30 00:22] LABS: Trichomonas Vag PCR NOT DETECTED (NOT DETECTE)
[2024-09-30 00:46] LABS: Chlamydia trachomatis NOT DETECTED (NOT DETECTE); Neisseria gonorrhoeae PCR NOT DETECTED (NOT DETECTE)
--- NOTE | 2024-09-30 01:11 | PC.NURSE ---
Spoke with [employer] dispatcher regarding pt's statement to provider. Aware that pt declined kit with provider.
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
--- NOTE | 2024-09-30 02:10 | PC.NURSE ---
OK per Tacho, Men'S Swim Coach for JAIRO exam to be completed in ICU. 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 Cart will be brought up to unit from ED.
--- NOTE | 2024-09-30 02:35 | PC.NURSE ---
This patient, Puja Baldwin, was admitted to Intensive Care Unit-9. Patient/family oriented to hospital policies and general routines including ID bracelet, bed and alarms, visiting hours, pain management, procedures, bathroom and other care routines, personal items, smoking policy, room service/diet, and visiting hours. Information on how to activate the Rapid Response Team has been discussed. Patient/Family are encouraged to report perceived risks to care and to ask questions if they do not understand what they are told or what they should do.
[2024-09-30] MEDS: ACETAMINOPHEN 325 MG TABLET 650 MG PO ×3 (03:59→16:48)
[2024-09-30 04:00] LABS: Basophils Percent Auto 0.6 % (0.2-1.2); Eosinophils Percent Auto 0.3 % (0-4.4); Hematocrit 28.8 % (37.0-47.0); Immature Granulocyte Absolute 0.03 K/mm3 (0.00-0.031); Immature Granulocyte Percent A 0.4 % (0-0.5); Lymphocytes Absolute Auto 1.37 K/mm3 (0.9-3.2); Lymphocytes Percent Auto 20.3 % (18.3-44.2); Mean Corpuscular HGB Conc 34.7 g/dl (32-36); Mean Corpuscular Hemoglobin 31.3 pg (26-34); Mean Platelet Volume 9.4 fl (7.4-10.4); Monocytes Absolute Auto 0.8 K/mm3 (0.1-0.6); Monocytes Percent Auto 12.1 % (2.6-8.5); Neutrophils Absolute Auto 4.5 K/mm3 (1.3-6.7); Neutrophils Percent Auto 66.3 % (45.5-73.1); Platelet Count Result 177 k/mm3 (150-375); Red Cell Distribution Width 12.5 % (11.5-14.5); White Blood Count 6.8 K/mm3 (4.5-10.0)
[2024-09-30 04:11] LABS: Alanine Aminotransferase 42 U/L (6-35); Albumin Level 3.7 g/dL (3.5-5.1); Alkaline Phosphatase 46 U/L (38-126); Anion Gap 9 mmol/L (4-12); Aspartate Amino Transferase 61 U/L (14-36); Bilirubin,Total 2.6 mg/dL (0.2-1.3); Blood Urea Nitrogen 4 mg/dL (7-17); Calcium 7.7 mg/dL (8.4-10.2); Carbon Dioxide 22 mmol/L (22-30); Chloride 92 mmol/L (98-107); Estimated CRCL calculation 110 ml/min; Estimated Glomerular Filt Rate > 60; Glucose 80 mg/dL (65-110); Potassium 3.6 mmol/L (3.4-5.0); Sodium 123 mmol/L (137-145)
[2024-09-30 05:08] LABS: MRSA (PCR) NOT DETECTED (NOT DETECTE)
[2024-09-30] MEDS: ALBUMIN HUMAN 25% 25 GM/100 ML 100 ML IVPB ×3 (08:25→23:35)
[2024-09-30] MEDS: HEPARIN SODIUM 5,000 UNITS/ML VIAL 5000 UNITS SUB-Q ×2 (08:25→20:41)
[2024-09-30] MEDS: levETIRAcetam 500MG/NACL 100ML 500 MG/100 ML BAG 400 MG IVPB ×2 (08:25→20:41)
[2024-09-30] MEDS: LORazepam INJ (*CRX) 2 MG/ML VIAL IV PUSH (08:29)
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
[2024-09-30] MEDS: FOLIC ACID 1 MG/0.2 ML INJ IV PUSH (17:36)
[2024-09-30] MEDS: THIAMINE HCL 200 MG/2 ML VIAL 100 MG IV PUSH (17:50)
[2024-09-30 18:23] LABS: Anion Gap 12 mmol/L (4-12); Blood Urea Nitrogen 6 mg/dL (7-17); Calcium 8.6 mg/dL (8.4-10.2); Carbon Dioxide 23 mmol/L (22-30); Chloride 93 mmol/L (98-107); Estimated CRCL calculation 80 ml/min; Estimated Glomerular Filt Rate > 60; Glucose 77 mg/dL (65-110); Potassium 3.3 mmol/L (3.4-5.0); Sodium 128 mmol/L (137-145)
[2024-09-30 19:10] LABS: Hepatitis B Surface Antigen Negative (Negative)
[2024-09-30 19:14] LABS: Syphilis IgG/IgM Antibody Negative (Negative)
[2024-09-30 19:23] LABS: HIV 1/2 Ab P24 Ag Result Negative (Negative)
[2024-09-30 19:27] LABS: Hepatitis C Virus Antibody Negative (Negative)
[2024-09-30 20:31] LABS: HAV RESULT Negative (Negative); Hepatitis B Core IgM Result Negative (Negative)
[2024-09-30] MEDS: DEXTROSE 5% IN WATER 300 ML 150 ML IV CONT (22:00)
[2024-09-30] MEDS: DESMOPRESSIN ACETATE 4 MCG/ML AMP 2 MCG IV PUSH (22:22)
[2024-10-01] VITALS (14 sets, daily range): BP systolic 95–164; BP diastolic 59–98; PULSE 73–113; RESP 16–20; TEMP 36.7–36.8; O2SAT 98–100
[2024-10-01 01:15] LABS: Sodium 121 mmol/L (137-145)
[2024-10-01 05:19] LABS: Basophils Absolute Auto 0.1 K/mm3 (0.0-0.1); Basophils Percent Auto 0.9 % (0.2-1.2); Eosinophils Absolute Auto 0.1 K/mm3 (0-0.3); Eosinophils Percent Auto 2.1 % (0-4.4); Hematocrit 25.9 % (37.0-47.0); Hemoglobin 9.1 g/dL (12.0-15.0); Immature Granulocyte Absolute 0.02 K/mm3 (0.00-0.031); Immature Granulocyte Percent A 0.4 % (0-0.5); Lymphocytes Absolute Auto 2.65 K/mm3 (0.9-3.2); Lymphocytes Percent Auto 46.5 % (18.3-44.2); Mean Corpuscular HGB Conc 35.1 g/dl (32-36); Mean Corpuscular Hemoglobin 31.9 pg (26-34); Mean Corpuscular Volume 90.9 fl (80-100); Mean Platelet Volume 8.8 fl (7.4-10.4); Monocytes Absolute Auto 0.7 K/mm3 (0.1-0.6); Monocytes Percent Auto 11.6 % (2.6-8.5); Neutrophils Absolute Auto 2.2 K/mm3 (1.3-6.7); Neutrophils Percent Auto 38.5 % (45.5-73.1); Platelet Count Result 187 k/mm3 (150-375); Red Blood Count 2.85 M/mm3 (4.2-5.4); Red Cell Distribution Width 12.7 % (11.5-14.5); White Blood Count 5.7 K/mm3 (4.5-10.0)
[2024-10-01 05:34] LABS: Alanine Aminotransferase 28 U/L (6-35); Albumin Level 4.3 g/dL (3.5-5.1); Alkaline Phosphatase 38 U/L (38-126); Anion Gap 13 mmol/L (4-12); Aspartate Amino Transferase 38 U/L (14-36); Bilirubin,Total 1.9 mg/dL (0.2-1.3); Blood Urea Nitrogen 5 mg/dL (7-17); Calcium 8.3 mg/dL (8.4-10.2); Carbon Dioxide 20 mmol/L (22-30); Chloride 89 mmol/L (98-107); Estimated CRCL calculation 112 ml/min; Estimated Glomerular Filt Rate > 60; Glucose 77 mg/dL (65-110); Potassium 3.2 mmol/L (3.4-5.0); Sodium 122 mmol/L (137-145)
[2024-10-01] MEDS: ALBUMIN HUMAN 25% 25 GM/100 ML 100 ML IVPB (06:32)
[2024-10-01] MEDS: chlordiazePOXIDE (*CRX) 25 MG CAPSULE PO ×3 (06:32→17:10)
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
[2024-10-01] MEDS: FOLIC ACID 1 MG/0.2 ML INJ IV PUSH (09:00)
[2024-10-01] MEDS: levETIRAcetam 500MG/NACL 100ML 500 MG/100 ML BAG 400 MG IVPB ×2 (09:00→21:38)
[2024-10-01] MEDS: THIAMINE HCL 200 MG/2 ML VIAL 100 MG IV PUSH (09:00)
[2024-10-01] MEDS: HEPARIN SODIUM 5,000 UNITS/ML VIAL 5000 UNITS SUB-Q (09:00)
--- NOTE | 2024-10-01 09:57 | P.CONNP_ITS ---
Assessment and Plan Assessment and plan (1) Hyponatremia: Code(s): E87.1 - Hypo-osmolality and hyponatremia Status: Acute Assessment and Plan: the patient has hyponatremia. This seems to be chronic. The patient says that she has had low sodiums for many years. She used to be cared for in [place] and was told the same thing there. In 2021 she did have a sodium 135 as well supporting this thought. Reasons for chronic hyponatremia including cancer, and pulmonary disease. There is no sign of this by history or by Radiology. She is up-to-date with her cancer screening. PROGRAM COORDINATOR issues Can do this as well. Has a chronic seizure disorder. Her CT brain is negative. I doubt if the low sodium is due to her seizure disorder. Meds can do this. She was on tramadol before but is off of this for about a month now according to her history so that has worn off so should not be contributing to the low sodium now. She is not on other medicines that would cause hyponatremia. She does have elevated liver enzymes and fatty liver. She does drink some alcohol which can contribute to low sodium as well. She was not eating very much in the month of August and so osmolar intake was low and so with all the water she drinks this may have driven her sodium level down. If that is the only case, then I am not sure why her urine specific gravity would be 1.019 on admission. So it is unclear why her sodium is low on a long-term basis and it is not completely clear why was even lower on this short-term basis. Certainly things a contribute to her low sodium include: Alcohol intake, free water intake, low osmolar intake because of her lack of eating in September, and possibly dehydration The over correction of sodium could have been multifactorial. She was placed on a fluid restriction and if excess water drinking was accomplished then auto correction could have occurred. another possibility would be that she might have been a little dehydrated and she got 2L of sodium chloride which could correct the sodium. Another possibility is that she was getting albumin which could potentially mobilize some sodium. the over correction has been treated so she is back where she should be. Going forward, looks like her sodium is stable now for the last few hours. Will check frequent sodiums during the day to see what happens. Since she received DDAVP correction may be somewhat slow at 1st. So I do not want to be too aggressive with trying to correct the sodium early because when the DDAVP wears off she might auto correct again. Cortisol level was a little bit low so will get a Cortrosyn stim test. TSH was okay. (2) Elevated LFTs: Code(s): R79.89 - Other specified abnormal findings of blood chemistry Status: Acute Assessment and Plan: This plus the fatty liver seen on her abdominal ultrasound suggest excess alcohol intake among other things. Hepatitis tests, and HIV are okay. liver enzymes are improving (3) Lactic acidemia: Code(s): E87.20 - Acidosis, unspecified Status: Acute Assessment and Plan: this was probably secondary to the seizure. This had improved to normal now the CO2 is down a little bit more. Anion gap is up a little bit. Will recheck the lactic acid level. (4) Generalized anxiety disorder: Code(s): F41.1 - Generalized anxiety disorder Status: Acute (5) Seizures: Code(s): R56.9 - Unspecified convulsions Status: Acute Assessment and Plan: The patient has a chronic seizure disorder. Also of course her sodium level was low and she had some alcohol in her blood and she did not sleep the night before according to the patient all of which would lower her threshold for seizures. History of Present Illness Reason for Consult Consult date: 10/01/24 Chief Complaint Chief complaint: Hyponatremia History of Present Illness Narrative: Puja is a very pleasant 48-year-old lady who has hyponatremia. She has chronic intermittent seizures for which at 1st she was treated with Xanax and now she is being treated with clonazepam. She also has a history of anxiety, 3 vaginal deliveries, PID, metatarsal bone fracture, metatarsalgia, abnormal Pap smears, and left shoulder lesion. The patient has not been feeling well for about the last 6 weeks or so. She has not been eating well. She has also had intermittent nausea. She recently changed doctors. She took her last dose of clonazepam that the night before she saw her doctor for the 1st time. She was there to establish a visit but also to get more clonazepam. While she was in the doctor's office she had a seizure. She was sent to the ER. In the ER she was found to have a sodium of 115. She received meds for the seizure. She was given hypertonic saline the day before yesterday. At some point Nephrology consultation was considered they did not notify Nephrology until last evening. She was placed on a fluid restriction and given the hypertonic saline. The sodium level had been 115 on admission then mayank to 128. She was then given D5W and DDAVP to bring the sodium back down to 122 At 1:00 a.m. and that is where it is now. the patient has had no more seizures she is alert and oriented x3. The patient says that she drinks lots of water. She drinks about 8-12 oz cans of soda plus drinks lots of water as well and so she probably drinks around a gal per day. She tells me that she has had low sodium for many many years However usually is only mildly low, nor near 115. She has never seen a guardian ad litem about this. She has no insight into what causes the sodium to be low. She does not take SSRIs, proton pump inhibitors, or diuretics. She was taking tramadol every day until about August but then has been off of that. She tells me that she drinks 2 or 3 glasses of wine twice a month with her boyfriend and then sometimes things are not going very well she will have some extra alcohol between times. She has never had cancer. She is Up-to-date with her Pap smears. She has no PROGRAM COORDINATOR or pulmonary issues. she does not do any recreational drugs. She does not smoke Review of Systems 2 Constitutional: Constitutional: Reports no additional constitutional complaints Eyes: Eyes: Reports no additional eye complaints ENT: Reports system reviewed and no additional complaints, except as documented Cardiovascular: Cardiovascular: Reports no additional cardiovascular complaints Respiratory: Respiratory: Reports no additional respiratory complaints Gastrointestinal: Gastrointestinal: Reports no additional gastrointestinal complaints Genitourinary: Genitourinary: Reports no additional female genitourinary complaints Musculoskeletal: Musculoskeletal: Reports no additional musculoskeletal complaints Integumentary/Breasts: Skin/Breast: Reports system reviewed and no additional complaints, except as docu Neurologic: Reports system reviewed and no additional complaints, except as documented Psychiatric: Psychiatric: Reports no additional psychiatric complaints Endocrine: Endocrine: Reports no additional endocrine complaints [facility] Past Medical History Medical History Shoulder lesion, left Abnormal Pap smear of cervix 01/07/2021, HPV+, rpt 1 year Metatarsal bone fracture Metatarsalgia, left foot History of pelvic inflammatory disease 2019 History of vaginal delivery x 3 2002 2003 2006 Anxiety Surgical History Surgical History History of colposcopy 2016 H/O shoulder surgery ORIF left shoulder 03/2016, later removal of hardware Family History Family History Father NHL (non-Hodgkin's lymphoma) Heart disease Mother Hypertension Diabetes mellitus Social History Social History Smoking status: Never smoker Alcohol intake: current Drinks per week: 6 Substance use: never Lack of Food: Never True Current Housing: I Have Housing Concerned About Future Housing: No Difficulty Paying Gas/Electric Bills: No Difficulty Paying for Meds: No Currently Unemployed: No Education: Trade/Vocational Certificate Difficulty w/ Childcare or Family Care: No Spiritual care concerns: No Meds Home Medications and Allergies Home Medications ?Medication ?Instructions ?Recorded ?Confirmed ?Type clonazepam 1 mg tablet 1 mg PO TID PRN anxiety #90 tabs 02/10/23 09/30/24 Rx Allergies Allergy/AdvReac Type Severity Reaction Status Date / Time haloperidol Allergy Unknown Unknown Verified 09/30/24 06:54 prednisone Allergy Unknown Unknown Verified 09/30/24 06:54 Vital Signs Vital Signs - 24 hr 09/30/24 09:58 09/30/24 12:00 09/30/24 12:00 Temperature Pulse Rate 79 73 76 Respiratory Rate 17 Blood Pressure 113/76 Pulse Oximetry 100 99 Oxygen Delivery Room Air 09/30/24 12:00 09/30/24 14:00 09/30/24 16:00 Temperature Pulse Rate 78 78 Respiratory Rate Blood Pressure 113/76 Pulse Oximetry Oxygen Delivery 09/30/24 16:00 09/30/24 16:00 09/30/24 16:00 Temperature Pulse Rate 78 78 83 Respiratory Rate 17 Blood Pressure 120/89 Pulse Oximetry 99 100 Oxygen Delivery Room Air 09/30/24 17:44 09/30/24 20:00 09/30/24 20:00 Temperature Pulse Rate 83 83 Respiratory Rate 17 Blood Pressure 127/69 Pulse Oximetry 100 Oxygen Delivery Room Air 09/30/24 20:00 09/30/24 20:00 09/30/24 22:00 Temperature 98.2 F Pulse Rate 83 83 90 Respiratory Rate 16 Blood Pressure 118/71 Pulse Oximetry 98 Oxygen Delivery 10/01/24 00:00 10/01/24 00:00 10/01/24 00:00 Temperature Pulse Rate 87 87 Respiratory Rate 16 Blood Pressure 129/90 Pulse Oximetry 98 Oxygen Delivery Room Air 10/01/24 00:00 10/01/24 02:00 10/01/24 04:00 Temperature Pulse Rate 83 82 Respiratory Rate 16 Blood Pressure 129/90 95/68 L Pulse Oximetry 98 Oxygen Delivery 10/01/24 04:00 10/01/24 04:00 10/01/24 04:00 Temperature 98.2 F Pulse Rate 86 86 86 Respiratory Rate 16 16 Blood Pressure 102/84 Pulse Oximetry 98 98 Oxygen Delivery Room Air 10/01/24 06:00 Temperature Pulse Rate 82 Respiratory Rate Blood Pressure Pulse Oximetry Oxygen Delivery Exam 2 Narrative: Exam Narrative: Well developed well-nourished female in no acute distress Skin is warm and dry without rash Head normocephalic atraumatic Eyes normal sclerae and conjunctivae Mouth normal lips teeth and gums Neck no nodes no thyromegaly no carotid bruits Axillae no nodes Back no CVA tenderness Lungs symmetric and clear to auscultation and percussion Heart regular rate and rhythm without rub or gallop Abdomen bowel sounds positive soft nontender, no HSM, masses, or bruits. Extremities no cyanosis, clubbing, or edema Pulses 2+ equal in radial arteries Psychological not anxious or depressed Neuro alert and oriented x3 motor 5/5 cranial nerves 2-12 intact reflexes 2+ and equal in the biceps and patellar tendons cerebellar normal rapid alternating movements Results Lab Results 10/01/24 05:07 10/01/24 05:07 Lab results: Most recent lab results Calcium 8.3 mg/dL (8.4-10.2) L 10/01/24 05:07 Phosphorus 2.9 mg/dL (2.5-4.5) 09/29/24 18:34 Magnesium 1.5 mg/dL (1.6-2.3) L 09/29/24 18:34 Urine Creatinine 83.3 mg/dL 09/29/24 18:32
[2024-10-01 12:01] LABS: Sodium 121 mmol/L (137-145)
[2024-10-01 12:04] LABS: Ammonia < 9 umol/L (9-30); Bilirubin,Total 2.4 mg/dL (0.2-1.3); Lactate Dehydrogenase 156 U/L (120-246)
[2024-10-01 12:08] LABS: Iron 60 ug/dL (37-170)
[2024-10-01 12:11] LABS: Transferrin 182 mg/dL (206-381)
[2024-10-01 12:12] LABS: Beta-Hydroxybutyrate/Acetoacetate 0.69 mmol/L (0.02-0.27)
[2024-10-01 12:18] LABS: Immature Reticulocyte Fraction 17.7 % (3.0-15.9); Reticulocyte Hemoglobin Conten 39.5 pg (28.2-36.6); Reticulocyte Percent 2.79 % (0.7-4.3); Reticulocytes Absolute 0.08 10^6/uL (0.02-0.10)
[2024-10-01 12:18] LABS: Percent Iron Saturation 29 % (20-50)
[2024-10-01] MEDS: SODIUM CHLORIDE 0.9% IV 1,000 ML 50 ML IV CONT (12:22)
[2024-10-01] MEDS: COSYNTROPIN 0.25 MG/ML VIAL IV PUSH (12:22)
[2024-10-01 12:35] LABS: Cortisol Baseline 8.75 ug/dL
[2024-10-01 13:11] LABS: Folic Acid > 20.0 ng/mL (2.76->20)
[2024-10-01 14:24] LABS: Sodium 120 mmol/L (137-145)
--- NOTE | 2024-10-01 15:58 | PC.NURSE ---
Patient has on several occasions in the short amount of time admitted to the IMU tried to get out of bed without assistance. This RN informed the patient that she is not to get out of bed for safety precautions, as she is at risk of seizures. The patient states that she was told that she could walk around. This RN informed the patient that she can walk but that she must be accompanied by a healthcare professional. This RN also discussed with the patient that I could sit her up in a chair, but that I would need to put a chair alarm on her. The patient declined the opportunity to sit up in the chair at this time. The patient then requested that her room door be closed. This RN obliged closing the room door.
[2024-10-01] MEDS: LORazepam INJ (*CRX) 2 MG/ML VIAL IV PUSH ×2 (17:10→21:19)
[2024-10-01] MEDS: POTASSIUM CHLORIDE 20 MEQ ER TABLET 40 MEQ PO (21:24)
[2024-10-02] VITALS (13 sets, daily range): BP systolic 95–115; BP diastolic 52–83; PULSE 81–120; RESP 14–24; TEMP 36.6–37.1; O2SAT 94–100
[2024-10-02] MEDS: chlordiazePOXIDE (*CRX) 25 MG CAPSULE PO ×4 (00:11→17:49)
[2024-10-02 04:45] LABS: Basophils Percent Auto 0.5 % (0.2-1.2); Eosinophils Absolute Auto 0.1 K/mm3 (0-0.3); Eosinophils Percent Auto 1.5 % (0-4.4); Hematocrit 28.9 % (37.0-47.0); Immature Granulocyte Absolute 0.05 K/mm3 (0.00-0.031); Immature Granulocyte Percent A 0.8 % (0-0.5); Lymphocytes Absolute Auto 2.06 K/mm3 (0.9-3.2); Lymphocytes Percent Auto 33.9 % (18.3-44.2); Mean Corpuscular HGB Conc 34.6 g/dl (32-36); Mean Corpuscular Hemoglobin 31.5 pg (26-34); Mean Corpuscular Volume 91.2 fl (80-100); Mean Platelet Volume 9.1 fl (7.4-10.4); Monocytes Absolute Auto 0.8 K/mm3 (0.1-0.6); Neutrophils Absolute Auto 3.1 K/mm3 (1.3-6.7); Neutrophils Percent Auto 50.3 % (45.5-73.1); Platelet Count Result 282 k/mm3 (150-375); Red Blood Count 3.17 M/mm3 (4.2-5.4); Red Cell Distribution Width 12.7 % (11.5-14.5); White Blood Count 6.1 K/mm3 (4.5-10.0)
[2024-10-02 07:05] LABS: Alanine Aminotransferase 25 U/L (6-35); Albumin Level 4.3 g/dL (3.5-5.1); Alkaline Phosphatase 40 U/L (38-126); Anion Gap 15 mmol/L (4-12); Aspartate Amino Transferase 40 U/L (14-36); Bilirubin,Total 0.8 mg/dL (0.2-1.3); Blood Urea Nitrogen 6 mg/dL (7-17); Calcium 9.1 mg/dL (8.4-10.2); Carbon Dioxide 18 mmol/L (22-30); Chloride 101 mmol/L (98-107); Estimated CRCL calculation 101 ml/min; Estimated Glomerular Filt Rate > 60; Glucose 79 mg/dL (65-110); Potassium 3.7 mmol/L (3.4-5.0); Sodium 134 mmol/L (137-145)
[2024-10-02] MEDS: DEXTROSE 5% IN WATER 500 ML 250 ML IV CONT ×2 (08:30→12:24)
[2024-10-02] MEDS: DESMOPRESSIN ACETATE 4 MCG/ML AMP 2 MCG SUB-Q (08:45)
[2024-10-02] MEDS: FOLIC ACID 1 MG/0.2 ML INJ IV PUSH (08:47)
[2024-10-02] MEDS: THIAMINE HCL 200 MG/2 ML VIAL 100 MG IV PUSH (08:47)
[2024-10-02] MEDS: levETIRAcetam 500MG/NACL 100ML 500 MG/100 ML BAG 400 MG IVPB ×2 (08:47→21:17)
[2024-10-02 09:00] LABS: Ethanol < 10 mg/dL (<10)
[2024-10-02 09:47] LABS: Sodium 132 mmol/L (137-145)
--- NOTE | 2024-10-02 11:00 | PM.PNNEP ---
Subjective Date/time seen: 10/02/24 11:00 Interval history: Follow-up for acute on chronic hyponatremia. Chart reviewed -- assuming care from Dr. Paul; evidence of overcorrection of sodium in the last 24 hours (going from 121 to 134mmol/L); Objective Data Vital Signs Vital Signs: Vital Signs Temp Pulse Pulse Resp BP Pulse Ox O2 Del Method 10/02/24 10:00 87 10/02/24 08:00 98.1 F 96 20 107/62 94 10/02/24 08:00 88 14 100 Room Air 10/02/24 08:00 102 H 115/73 10/02/24 06:00 88 10/02/24 04:30 Room Air 10/02/24 04:00 103 H 10/02/24 04:00 97.9 F 81 14 115/73 100 10/02/24 02:00 82 10/02/24 00:10 Room Air 10/02/24 00:00 101 H 10/02/24 00:00 98.1 F 101 H 16 96/66 L 100 10/01/24 22:00 102 H 10/01/24 21:14 97 10/01/24 20:15 Room Air 10/01/24 20:00 113 H 10/01/24 20:00 98.1 F 106 H 20 113/73 100 Intake/Output Intake/Output: Intake & Output 09/29/24 09/30/24 10/01/24 10/02/24 23:59 23:59 23:59 23:59 Intake Total 1800 2640 1650 760 Output Total 1050 700 600 Balance 1800 1590 950 160 Meds/Results Medications: Active Medications Generic Name Dose Route Start Last Admin Trade Name Freq PRN Reason Stop Dose Admin Acetaminophen 650 mg 09/30/24 00:52 09/30/24 16:48 Acetaminophen 325 Mg Tablet PO 650 mg Q4H PRN Administration Mild Pain (1-3) or Fever Albuterol/Ipratropium 3 ml 09/30/24 00:52 Ipratropium 0.5 Mg/Albuterol Sulfate 2.5 Mg Ampul.Neb 3 Ml INHALATION Q4HRT PRN shortness of breath/Wheezing Chlordiazepoxide HCl 25 mg 09/30/24 00:00 10/02/24 17:49 Chlordiazepoxide (*Crx) 25 Mg Capsule PO 25 mg Q6HR FRANCISCA Administration Folic Acid 1 mg 10/01/24 09:00 10/02/24 08:47 Folic Acid 1 Mg/0.2 Ml Inj IV PUSH 1 mg QAM FRANCISCA Administration Guaifenesin/Dextromethorphan 10 ml 09/30/24 00:52 Guaifenesin/Dextromethorphan 10 Ml Udc PO Q4H PRN Cough Heparin Sodium (Porcine) 5,000 units 09/30/24 09:00 10/02/24 08:47 Heparin Sodium 5,000 Units/Ml Vial SUB-Q Not Given Q12HR FRANCISCA Levetiracetam 500 mg in 100 mls @ 400 mls/hr 09/30/24 09:00 10/02/24 08:47 Keppra Iv IVPB 400 mls/hr Q12HR FRANCISCA Administration Lorazepam 2 mg 09/29/24 21:47 10/01/24 21:19 Lorazepam Inj (*Crx) 2 Mg/Ml Vial IV PUSH 2 mg Q2H PRN Administration CIWA > 15 Lorazepam 2 mg 09/29/24 21:47 10/01/24 17:10 Lorazepam Inj (*Crx) 2 Mg/Ml Vial IV PUSH 2 mg Q4H PRN Administration CIWA 8-15 Melatonin 5 mg 09/30/24 00:52 Melatonin 5 Mg Tablet PO HS PRN Insomnia Ondansetron HCl 4 mg 09/29/24 21:47 Ondansetron Inj 4 Mg/2 Ml Vial IV PUSH Q6H PRN Nausea And Vomiting Polyethylene Glycol 17 gm 09/30/24 00:52 Polyethylene Glycol 3350 17 Gm Powd.Pack PO QAM PRN Constipation Prochlorperazine Edisylate 10 mg 09/30/24 00:52 Prochlorperazine Edisylate 10 Mg/2 Ml Vial IV PUSH Q6H PRN Nausea And Vomiting Thiamine HCl 100 mg 10/01/24 09:00 10/02/24 08:47 Thiamine Hcl 200 Mg/2 Ml Vial IV PUSH 100 mg QAM FRANCISCA Administration Radiology Results: ITS Impressions Chest X-Ray 09/29/24 19:03 IMPRESSION: No acute cardiopulmonary pathology. Head CT 09/29/24 20:00 IMPRESSION: No acute intracranial findings. Abdomen Ultrasound 09/30/24 17:22 IMPRESSION: Mild fat infiltration of the liver. Trace of fluid in the right upper quadrant. Otherwise, normal limited abdominal ultrasound. Labs Labs: Laboratory Tests 10/02/24 03:45 10/02/24 10/02/24 03:45 09:35 Sodium 134 L 132 L Potassium 3.7 Chloride 101 Carbon Dioxide 18 L Anion Gap 15 H BUN 6 L Creatinine 0.41 L Estim Creat Clear Calc 101 Estimated GFR > 60 Glucose 79 Calcium 9.1 Total Bilirubin 0.8 AST 40 H ALT 25 Alkaline Phosphatase 40 Total Protein 7.0 Albumin 4.3
[2024-10-02 15:44] LABS: Haptoglobin 99 mg/dL (43-212)
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
--- NOTE | 2024-10-02 15:55 | PC.NURSE ---
Patient noted to the be in the bathroom for a very long time according the ent nurse. The manufacturing technician went in to check on the patient. This RN asked how long the patient had been in the bathroom and was told about an hour and a half, cleaning up . This RN went into the room to check on the patient and she is standing up with a steady gait. Patient states Dionne ! This RN corrected the patient and told her my name is Ela . This is significant because the patient has called this RN by her name all day without hesitation. The patient then states Ela, I have open wounds . This RN asked where? The patient states all over my arms where they removed my IV and took my blood. She then pointed to a bandaid on her arm. This RN stated Those would not be considered open wounds . The patient states Yes, they are, and my pee is the color of Perez . This RN collected the urine and sent it down for testing as ordered. The urine was noted to be sarah in color. The patient then stated My legs are purple . This RN stated your legs are not purple . The patient stated yes they are ! The patient did not appear to be in any distress but her behavior was off, this RN called the doctor to make him aware of her odd behavior. Urine sent for drug screen as ordered.
[2024-10-02 15:57] LABS: Sodium 129 mmol/L (137-145)
[2024-10-02 16:28] LABS: Amphetamine Screen Urine Negative (Negative); Barbiturate Screen Urine Negative (Negative); Benzodiazepines Screen Urine Positive (Negative); Cannabinoid Screen Urine Negative (Negative); Cocaine Screen Urine Negative (Negative); Methadone Screen Urine Negative (Negative); Opiate Screen Urine Negative (Negative); Phencyclidine Screen Urine Negative (Negative)
[2024-10-02] MEDS: LORazepam INJ (*CRX) 2 MG/ML VIAL IV PUSH (21:29)
[2024-10-03] VITALS: PULSE 97
[2024-10-03] MEDS: chlordiazePOXIDE (*CRX) 25 MG CAPSULE PO ×3 (00:05→12:26)
[2024-10-03 02:00] VITALS: PULSE 86
[2024-10-03 03:17] LABS: Protein, Total 6.9 g/dL (6.1-8.1)
[2024-10-03 04:00] VITALS: BP 112/74; PULSE 81; PULSE 93; RESP 16; TEMP 36.7; O2SAT 98
[2024-10-03 05:14] LABS: Basophils Percent Auto 0.5 % (0.2-1.2); Eosinophils Absolute Auto 0.3 K/mm3 (0-0.3); Eosinophils Percent Auto 3.5 % (0-4.4); Hematocrit 26.8 % (37.0-47.0); Hemoglobin 9.2 g/dL (12.0-15.0); Immature Granulocyte Absolute 0.06 K/mm3 (0.00-0.031); Immature Granulocyte Percent A 0.8 % (0-0.5); Lymphocytes Absolute Auto 2.14 K/mm3 (0.9-3.2); Lymphocytes Percent Auto 27.8 % (18.3-44.2); Mean Corpuscular HGB Conc 34.3 g/dl (32-36); Mean Corpuscular Hemoglobin 32.1 pg (26-34); Mean Corpuscular Volume 93.4 fl (80-100); Monocytes Absolute Auto 1.1 K/mm3 (0.1-0.6); Monocytes Percent Auto 13.9 % (2.6-8.5); Neutrophils Absolute Auto 4.1 K/mm3 (1.3-6.7); Neutrophils Percent Auto 53.5 % (45.5-73.1); Platelet Count Result 286 k/mm3 (150-375); Red Blood Count 2.87 M/mm3 (4.2-5.4); Red Cell Distribution Width 13.8 % (11.5-14.5); White Blood Count 7.7 K/mm3 (4.5-10.0)
[2024-10-03 05:26] LABS: Alanine Aminotransferase 23 U/L (6-35); Alkaline Phosphatase 37 U/L (38-126); Anion Gap 11 mmol/L (4-12); Aspartate Amino Transferase 30 U/L (14-36); Bilirubin,Total 0.6 mg/dL (0.2-1.3); Blood Urea Nitrogen 13 mg/dL (7-17); Calcium 8.6 mg/dL (8.4-10.2); Carbon Dioxide 19 mmol/L (22-30); Chloride 101 mmol/L (98-107); Estimated CRCL calculation 114 ml/min; Estimated Glomerular Filt Rate > 60; Glucose 85 mg/dL (65-110); Potassium 3.4 mmol/L (3.4-5.0); Sodium 131 mmol/L (137-145)
[2024-10-03 06:00] VITALS: PULSE 91
--- NOTE | 2024-10-03 06:23 | PC.NURSE ---
Pt refusing finger sticks this A.M.
[2024-10-03 07:42] VITALS: BP 92/53; PULSE 100; RESP 14; TEMP 36.8; O2SAT 100
[2024-10-03 08:00] VITALS: PULSE 98
[2024-10-03] MEDS: levETIRAcetam 500MG/NACL 100ML 500 MG/100 ML BAG 400 MG IVPB (08:34)
[2024-10-03] MEDS: FOLIC ACID 1 MG/0.2 ML INJ IV PUSH (08:35)
[2024-10-03] MEDS: THIAMINE HCL 200 MG/2 ML VIAL 100 MG IV PUSH (08:35)
--- NOTE | 2024-10-03 10:10 | PM.PNNEP ---
Subjective Date/time seen: 10/03/24 10:10 Objective Data Vital Signs Vital Signs: Vital Signs Temp Pulse Pulse Resp BP Pulse Ox O2 Del Method 10/03/24 08:00 98 10/03/24 07:42 98.2 F 100 14 92/53 L 100 10/03/24 06:00 91 10/03/24 04:00 93 16 98 Room Air 10/03/24 04:00 93 10/03/24 04:00 93 10/03/24 04:00 98.0 F 81 16 112/74 98 10/03/24 02:00 86 10/03/24 00:00 Room Air 10/03/24 00:00 97 10/03/24 00:00 97 10/02/24 23:58 98.6 F 100 16 95/52 L 100 10/02/24 22:00 97 10/02/24 20:00 100 10/02/24 20:00 Room Air 10/02/24 20:00 120 H 10/02/24 20:00 98.3 F 93 16 99/73 L 99 10/02/24 18:00 104 H 10/02/24 16:00 98.7 F 86 20 109/83 100 10/02/24 16:00 104 H 20 94 Room Air 10/02/24 16:00 104 H 107/62 10/02/24 16:00 104 H 10/02/24 14:00 84 Intake/Output Intake/Output: Intake & Output 09/30/24 10/01/24 10/02/24 10/03/24 23:59 23:59 23:59 23:59 Intake Total 2640 1650 1440 480 Output Total 1050 700 900 500 Balance 1590 950 540 -20 Meds/Results Medications: Active Medications Generic Name Dose Route Start Last Admin Trade Name Freq PRN Reason Stop Dose Admin Acetaminophen 650 mg 09/30/24 00:52 09/30/24 16:48 Acetaminophen 325 Mg Tablet PO 650 mg Q4H PRN Administration Mild Pain (1-3) or Fever Albuterol/Ipratropium 3 ml 09/30/24 00:52 Ipratropium 0.5 Mg/Albuterol Sulfate 2.5 Mg Ampul.Neb 3 Ml INHALATION Q4HRT PRN shortness of breath/Wheezing Chlordiazepoxide HCl 25 mg 09/30/24 00:00 10/03/24 12:26 Chlordiazepoxide (*Crx) 25 Mg Capsule PO 25 mg Q6HR FRANCISCA Administration Folic Acid 1 mg 10/01/24 09:00 10/03/24 08:35 Folic Acid 1 Mg/0.2 Ml Inj IV PUSH 1 mg QAM FRANCISCA Administration Guaifenesin/Dextromethorphan 10 ml 09/30/24 00:52 Guaifenesin/Dextromethorphan 10 Ml Udc PO Q4H PRN Cough Heparin Sodium (Porcine) 5,000 units 09/30/24 09:00 10/03/24 08:38 Heparin Sodium 5,000 Units/Ml Vial SUB-Q Not Given Q12HR FRANCISCA Levetiracetam 500 mg in 100 mls @ 400 mls/hr 09/30/24 09:00 10/03/24 08:34 Keppra Iv IVPB 400 mls/hr Q12HR FRANCISCA Administration Lorazepam 2 mg 09/29/24 21:47 10/03/24 12:27 Lorazepam Inj (*Crx) 2 Mg/Ml Vial IV PUSH 2 mg Q2H PRN Administration CIWA > 15 Lorazepam 2 mg 09/29/24 21:47 10/02/24 21:29 Lorazepam Inj (*Crx) 2 Mg/Ml Vial IV PUSH 2 mg Q4H PRN Administration CIWA 8-15 Melatonin 5 mg 09/30/24 00:52 Melatonin 5 Mg Tablet PO HS PRN Insomnia Ondansetron HCl 4 mg 09/29/24 21:47 Ondansetron Inj 4 Mg/2 Ml Vial IV PUSH Q6H PRN Nausea And Vomiting Polyethylene Glycol 17 gm 09/30/24 00:52 Polyethylene Glycol 3350 17 Gm Powd.Pack PO QAM PRN Constipation Prochlorperazine Edisylate 10 mg 09/30/24 00:52 Prochlorperazine Edisylate 10 Mg/2 Ml Vial IV PUSH Q6H PRN Nausea And Vomiting Thiamine HCl 100 mg 10/01/24 09:00 10/03/24 08:35 Thiamine Hcl 200 Mg/2 Ml Vial IV PUSH 100 mg QAM FRANCISCA Administration Radiology Results: ITS Impressions Chest X-Ray 09/29/24 19:03 IMPRESSION: No acute cardiopulmonary pathology. Head CT 09/29/24 20:00 IMPRESSION: No acute intracranial findings. Abdomen Ultrasound 09/30/24 17:22 IMPRESSION: Mild fat infiltration of the liver. Trace of fluid in the right upper quadrant. Otherwise, normal limited abdominal ultrasound. Labs Labs: Laboratory Tests 10/03/24 03:54 10/03/24 03:55 Calcium 8.6 Total Bilirubin 0.6 AST 30 ALT 23 Alkaline Phosphatase 37 L Total Protein 6.0 L Albumin 4.0
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
--- NOTE | 2024-10-03 12:21 | PCDIET ---
Nutrition screen for low BMI. EMR shows wt stable, pt reports her weight is usually about 90-100#. Current wt is 100#. Diet is heart healthy, intake 50-100%. Pt to discharge today. No nutrition recommendations.
[2024-10-03] MEDS: LORazepam INJ (*CRX) 2 MG/ML VIAL IV PUSH (12:27)
--- NOTE | 2024-10-03 16:12 | PC.NURSE ---
Pt. called from the pharmacy stating she couldn't get her clonazepam filled because Dr. Pierre decreased her dose and it was too soon to fill it. She stated she would have a seizure if she didn't get it filled today. I called Dr. Pierre and he said he would send a new order in for the clonazepam to the pharmacy. I called Puja and informed her of this.
[2024-10-03 19:03] LABS: Albumin 5.1 g/dL (3.8-4.8); Alpha 1 Globulin 0.2 g/dL (0.2-0.3); Alpha 2 Globulin 0.5 g/dL (0.5-0.9); Beta 1 Globulin 0.3 g/dL (0.4-0.6); Gamma Globulin 0.6 g/dL (0.8-1.7)
[2024-10-04 12:33] LABS: Osmolality, Urine 533 mOsm/kg (50-1200)
== END 2024-10-03 14:47 | disposition home or self-care (01) | DRG 896 ==
LOC: ANHED 21:30 → ANHICU 09-30 12:09 → ANHIMU 10-02 11:27 → ANHICU 10-05 14:52 → ANHIMU 10-05 14:52
PROVIDERS: General Practice; Internal Medicine; Internal Medicine Nephrology; Admitting Provider Internal Medicine; Emergency Provider Emergency Medicine; Visit Provider Internal Medicine
DX: F13.239 Sedative, hypnotic or anxiolytic dependence with withdrawal, unspecified (principal); G93.41 Metabolic encephalopathy; G40.89 Other seizures; E22.2 Syndrome of inappropriate secretion of antidiuretic hormone; E87.20 Acidosis, unspecified; T76.21XA Adult sexual abuse, suspected, initial encounter; F10.229 Alcohol dependence with intoxication, unspecified; R74.8 Abnormal levels of other serum enzymes; F41.1 Generalized anxiety disorder; E87.6 Hypokalemia; E86.0 Dehydration; F43.10 Post-traumatic stress disorder, unspecified
CPT/HCPCS: 36415; 70450; 71045; 76705; 80048; 80053; 80074; 80143; 80307; 81001; 81025; 82010; 82077; 82140; 82247; 82248; 82533; 82550; 82570; 82607; 82728; 82746; 83010; 83540; 83550; 83605; 83615; 83690; 83735; 83880; 83930; 83935; 84100; 84155; 84165; 84295; 84300; 84443; 84466; 84484; 84540; 85025; 85046; 85610; 85730; 86593; 86703; 86880; 87491; 87591; 87637; 87641; 87661; 93005; 96361; 96365; 96366; 96367; 96368; 96375; 96376; 99285; A9270; G0432; J0834; J1644; J1953; J2060; J2405; J2597; J3411; J3475; J3480; J7030; J7040; J7060; J7131; P9047